=== PATIENT | female | born 1995 | race Caucasian/White ===

== ENCOUNTER 2020-02-26 10:42 | Emergency (ER) | payer BC, OTHER ==
--- NOTE | 2020-02-26 11:07 | EDM.PDOC ---
ED HPI GENERAL MEDICAL PROBLEM - General Chief Complaint: General Stated Complaint: lip/face injury Time Seen by Provider: 02/26/20 10:50 Source of Information: Reports: Patient History Limitations: Reports: No Limitations - History of Present Illness INITIAL COMMENTS - FREE TEXT/NARRATIVE: Pt hit in left side of lower lip with torque wrench Has small puncture wound to lower lip Tetanus UTC Onset: Today, Sudden Location: Reports: Face Context: Reports: Trauma Treatments [employer]KE [employer]ER: Reports: Cold Therapy Right Lower Face/Facial Pain Score (Numeric/FACES): 5 - Related Data Allergies Allergy/AdvReac Type Severity Reaction Status Date / Time azithromycin [From Zithromax] Allergy Cannot Verified 02/26/20 10:44 Remember Home Meds: Home Meds FLUoxetine [PROzac] 20 mg PO DAILY 02/26/20 [History] Iron 1 tab PO DAILY 02/26/20 [History] Levonorgestrel-Ethin Estradiol [Vienva-28 Tablet] 1 tab PO DAILY 02/26/20 [History] busPIRone [Buspar] 02/26/20 [History] ED ROS GENERAL - Review of Systems Review Of Systems: See Below HEENT: Reports: Other (Lower lip puncture wound X 2) ED EXAM, GENERAL - Physical Exam Exam: See Below Exam Limited By: No Limitations Head: Other (Lower lip with 2 mm puncure wound X 2 No bleeding Inner lip intact) Course - Vital Signs Last Recorded V/S: Last Vital Signs Temp 99.2 F 02/26/20 10:48 Pulse 76 02/26/20 10:48 Resp 16 02/26/20 10:48 BP 110/51 L 02/26/20 10:48 Pulse Ox 100 02/26/20 10:48 Departure - Departure Time of Disposition: 11:05 Disposition: Home, Self-Care 01 Clinical Impression: Puncture wound of lip without foreign body Qualifiers: Encounter type: initial encounter Qualified Code(s): S01.531A - Puncture wound without foreign body of lip, initial encounter - Discharge Information *PRESCRIPTION DRUG MONITORING PROGRAM REVIEWED*: Not Applicable *COPY OF PRESCRIPTION DRUG MONITORING REPORT IN PATIENT JEF: Not Applicable Instructions: Wound Care, Adult, Puncture Wound Referrals: Cindy Chaparro [employer] [Primary Care Provider] - Additional Instructions: Keep wound clean Follow up in clinic Sepsis Event Note (ED) - Evaluation Sepsis Screening Result: No Definite Risk - Focused Exam Vital Signs: Vital Signs Temp Pulse Resp BP Pulse Ox 02/26/20 10:48 99.2 F 76 16 110/51 L 100
== END 2020-02-26 11:25 | disposition home or self-care (01) ==
LOC: LL.ED 10:42
DX: S01.531A Puncture wound without foreign body of lip, initial encounter (principal); Z88.1 Allergy status to other antibiotic agents; W22.8XXA Striking against or struck by other objects, initial encounter
CPT/HCPCS: 99282; 99283